=== PATIENT | female | born 1965 | race Caucasian/White ===

== ENCOUNTER 2024-02-17 08:25 | Outpatient (CLI) | payer OTHER, SELFPAY ==
--- NOTE | ~2024-02-17 | US_ITS ---
US soft tissue abdomen 02/17/2024 08:39 Indication: Right upper quadrant swelling Procedure: High-resolution Limited ultrasound of the right upper abdominal soft tissues Comparison: No prior studies for comparison. Findings: In the area of palpable concern in the right upper abdomen there is a superficially located oval encapsulated hypoechoic mass with horizontal striations measuring 3.6 x 2.7 x 1.8 cm. No business intern al vascularity or posterior features. Impression: 1: Superficial mass measuring up to 3.6 cm in the area of palpable concern with imaging characteristi cs consistent with a lipoma. Recommend follow-up ultrasound as clinically indicated. Reviewed, dictated and finalized at location B. Impression: 1: Superficial mass measuring up to 3.6 cm in the area of palpable concern with imaging characteristics consistent with a lipoma. Recommend follow-up ultrasou nd as clinically indicated.
== END 2024-02-17 08:26 ==
LOC: GOSHIMG 08:26
PROVIDERS: PCP Family Medicine; Visit Provider Physician Assistant
DX: R19.01 Right upper quadrant abdominal swelling, mass and lump (principal)
CPT/HCPCS: 76705